=== PATIENT | female | born 1980 | race Caucasian/White ===

== ENCOUNTER 2019-02-25 14:40 | Outpatient (CLI) | payer OTHER | END 2019-02-25 14:48 | disposition home or self-care (01) | LOC: MAMO-SONO 14:40 | DX: Z12.31 Encounter for screening mammogram for malignant neoplasm of breast (principal); N64.4 Mastodynia; N60.11 Diffuse cystic mastopathy of right breast; N63.10 Unspecified lump in the right breast, unspecified quadrant; N63.20 Unspecified lump in the left breast, unspecified quadrant ==

== ENCOUNTER 2020-07-19 07:11 | Outpatient (CLI) | payer OTHER | END 2020-07-19 07:30 | disposition home or self-care (01) | LOC: MAMO-SONO 07:11 | PROVIDERS: ATTEND Obstetrics & Gynecology Maternal & Fetal Medicine | DX: N60.02 Solitary cyst of left breast (principal); N60.01 Solitary cyst of right breast; N60.11 Diffuse cystic mastopathy of right breast; Z12.31 Encounter for screening mammogram for malignant neoplasm of breast; N64.4 Mastodynia; R10.811 Right upper quadrant abdominal tenderness; K76.0 Fatty (change of) liver, not elsewhere classified ==